=== PATIENT | male | born 1995 | race Two or more races ===

== ENCOUNTER 2023-06-10 16:26 | Emergency (ER) | payer MEDICAID ==
[~2023-06-10] VITALS: Ht 175.3 cm; Wt 68.0 kg
[2023-06-10] MEDS ORDERED: TETRACAINE HCL 0.5% OPTH(EYE) SOLN 4ML EACHEYE ONE (17:30)
[2023-06-10] MEDS ORDERED: cefTRIAXone SOD 1,000 MG VL IM ONE (17:30)
[2023-06-10] MEDS ORDERED: DOXY-447 PO (17:38)
[2023-06-10] MEDS ORDERED: LIDOCAINE 1% HCL (LOCAL ANESTH.) INJ 20ML MDV ONE (17:50)
[2023-06-10 17:58] VITALS: BP 161/89; PULSE 99; RESP 18; TEMP 97.6; O2SAT 97
[2023-06-10] MEDS ORDERED: LIDOCAINE 1% HCL (LOCAL ANESTH.) INJ 20ML MDV IJ ONE (18:00)
[2023-06-13 04:06] LABS: Chlamydia Trachomatis, NAA Negative (Negative); Neisseria gonorrhoeae, NAA Positive (Negative)
== END 2023-06-10 18:11 | disposition home or self-care (01) ==
LOC: ER 16:26
DX: N34.2 Other urethritis (principal); Z11.3 Encounter for screening for infections with a predominantly sexual mode of transmission; Z79.899 Other long term (current) drug therapy
CPT/HCPCS: 87491; 87591; 96372; 99283; J0696; J2001